=== PATIENT | male | born 1980 | race Caucasian/White ===

== ENCOUNTER 2021-02-02 23:01 | Emergency (ER) | payer OTHER ==
[~2021-02-02 23:01] MED LIST: AUGMENTIN 875-1 EACH PO; HUMALOG 10100 UNITS/ SC; LANTUS INS100 UTS/M1 SQ; LORTAB 5-325 M1 EACH PO; NEURONTIN 100100 MG PO; NORCO 5-325 TA1 EACH PO
[2021-02-02 23:30] LABS: HEMOGLOBIN 15.5 gm/dl (14.0-17.5); RED BLOOD COUNT 4.89 M/UL (4.20-5.50); WHITE BLOOD COUNT 19.3 K/UL (4.5-11.0)
[2021-02-02 23:52] LABS: BUN/CREATININE RATIO 29 (0-10)
[2021-02-03] MEDS ORDERED: PERCOCET 5/325 T1 EA PO (02:02)
[2021-02-03] MEDS ORDERED: BLOOD TEST (02:06)
== END 2021-02-03 02:33 | disposition home or self-care (01) ==
LOC: ER1 23:01
PROVIDERS: Physician Assistant Medical
DX: R10.31 Right lower quadrant pain (principal); E11.9 Type 2 diabetes mellitus without complications; F17.200 Nicotine dependence, unspecified, uncomplicated
CPT/HCPCS: 80053; 81001; 82009; 82550; 82553; 83690; 83874; 84484; 85025; 93005; 99284; Q9967

== ENCOUNTER → 2021-02-16 | Outpatient (CLI) | payer OTHER ==
[~2021-02-16] MED LIST changes: +BENTYL 10MG CAP10 MG PO; +BLOOD TEST; +IBUPROFEN800 MG PO; +PERCOCET 5/325 T1 EA PO
== END ==
LOC: EXRD 07:52
DX: B18.2 Chronic viral hepatitis C (principal)
CPT/HCPCS: 76705

== ENCOUNTER 2021-03-02 20:16 | Emergency (ER) | payer OTHER ==
[~2021-03-02 20:16] MED LIST changes: -BENTYL 10MG CAP10 MG PO; -IBUPROFEN800 MG PO
[2021-03-02 21:41] LABS: HEMOGLOBIN 14.9 gm/dl (14.0-17.5); RED BLOOD COUNT 4.72 M/UL (4.20-5.50); WHITE BLOOD COUNT 18.2 K/UL (4.5-11.0)
[2021-03-02 22:04] LABS: BUN/CREATININE RATIO 28 (0-10)
[2021-03-03] MEDS ORDERED: BENTYL 10MG CAP10 MG PO (01:41)
[2021-03-03] MEDS ORDERED: IBUPROFEN800 MG PO (01:41)
== END 2021-03-03 01:48 | disposition home or self-care (01) ==
LOC: ER1 20:16
PROVIDERS: Physician Assistant
DX: R10.11 Right upper quadrant pain (principal); E11.9 Type 2 diabetes mellitus without complications; Z90.49 Acquired absence of other specified parts of digestive tract
CPT/HCPCS: 80053; 83605; 83690; 85025; 99284; Q9967

== ENCOUNTER → 2021-03-22 | Outpatient (CLI) | payer OTHER ==
[~2021-03-22] MED LIST changes: +BENTYL 10MG CAP10 MG PO; +IBUPROFEN800 MG PO
[2021-03-23 20:09] LABS: HEPATITIS C QUANTITATION HCV Not Detected IU/mL (.)
== END ==
LOC: LAB 12:42
PROVIDERS: Nurse Practitioner
DX: B18.2 Chronic viral hepatitis C (principal)
CPT/HCPCS: 36415; 87522

== ENCOUNTER → 2021-04-28 | Outpatient (CLI) | payer OTHER | LOC: KOH-I 10:45 | DX: S99.911A Unspecified injury of right ankle, initial encounter (principal); R60.0 Localized edema; S92.321A Displaced fracture of second metatarsal bone, right foot, initial encounter for closed fracture; S92.331A Displaced fracture of third metatarsal bone, right foot, initial encounter for closed fracture; W19.XXXA Unspecified fall, initial encounter | CPT/HCPCS: 73590; 73610 ==

== ENCOUNTER → 2021-05-17 | Outpatient (CLI) | payer OTHER | LOC: KOH-I 09:06 | DX: M25.571 Pain in right ankle and joints of right foot (principal); S92.321D Displaced fracture of second metatarsal bone, right foot, subsequent encounter for fracture with routine healing; S92.331D Displaced fracture of third metatarsal bone, right foot, subsequent encounter for fracture with routine healing | CPT/HCPCS: 73610; 73630; 73700 ==

== ENCOUNTER → 2021-05-31 | Outpatient (CLI) | payer OTHER | LOC: KOH-I 12:55 | DX: R06.02 Shortness of breath (principal); R05.1 Acute cough; J98.11 Atelectasis | CPT/HCPCS: 71046 ==

== ENCOUNTER → 2021-06-09 | Outpatient (CLI) | payer OTHER | LOC: KOH-I 14:37 | DX: S92.321D Displaced fracture of second metatarsal bone, right foot, subsequent encounter for fracture with routine healing (principal); S92.331D Displaced fracture of third metatarsal bone, right foot, subsequent encounter for fracture with routine healing | CPT/HCPCS: 73630 ==

== ENCOUNTER → 2021-06-27 | Outpatient (CLI) | payer OTHER | LOC: KOH-I 15:12 | DX: R06.00 Dyspnea, unspecified (principal) | CPT/HCPCS: 71046 ==

== ENCOUNTER 2021-07-20 07:30 | Observation (INO) | payer OTHER ==
[~2021-07-20] VITALS: Ht 172.7 cm; Wt 153.8 kg
[2021-07-20 08:32] LABS: HEMOGLOBIN 15.3 gm/dl (14.0-17.5); RED BLOOD COUNT 4.9 M/UL (4.20-5.50); WHITE BLOOD COUNT 15.7 K/UL (4.5-11.0)
[2021-07-20 09:07] LABS: BUN/CREATININE RATIO 23 (0-10)
[2021-07-20] MEDS ORDERED: GABAPENTIN600 MG PO (12:51)
[2021-07-20] MEDS ORDERED: HUMULIN R500 UNIT/1 INJ ×2 (12:54)
[2021-07-20] MEDS ORDERED: FLOVENT 44 MCG7.9 GM INH (12:55)
[2021-07-20] MEDS ORDERED: PROAIR DIGIHAL90 MCG INH (12:56)
[2021-07-20] MEDS ORDERED: PROTONIX40 MG PO (12:56)
[2021-07-20] MEDS ORDERED: IBU800 MG PO (12:57)
[2021-07-20 13:18] LABS: BUN/CREATININE RATIO 23 (0-10)
[2021-07-21 05:49] LABS: BUN/CREATININE RATIO 30 (0-10)
[2021-07-21 11:42] LABS: RED BLOOD COUNT 4.92 M/UL (4.20-5.50); WHITE BLOOD COUNT 16.8 K/UL (4.5-11.0)
[2021-07-21] MEDS ORDERED: BACLOFEN10 MG PO (15:57)
[2021-07-21 19:43] LABS: BUN/CREATININE RATIO 31 (0-10)
[2021-07-22 03:36] LABS: HEMOGLOBIN 14.4 gm/dl (14.0-17.5); RED BLOOD COUNT 4.58 M/UL (4.20-5.50)
[2021-07-22 03:57] LABS: BUN/CREATININE RATIO 36 (0-10)
[2021-07-22 04:14] LABS: WHITE BLOOD COUNT 23.6 K/UL (4.5-11.0)
== END 2021-07-22 09:58 | disposition home or self-care (01) ==
LOC: ER1 07:30 → CDU 12:17 → CCU 12:17 → ER1 12:17 → CCU 21:34 → CDU 21:47 → CCU 21:47
PROVIDERS: Internal Medicine; Nurse Practitioner; Physician Assistant Medical; ADMIT Emergency Medicine
DX: R07.81 Pleurodynia (principal); M62.82 Rhabdomyolysis; D72.829 Elevated white blood cell count, unspecified; E11.65 Type 2 diabetes mellitus with hyperglycemia; B19.20 Unspecified viral hepatitis C without hepatic coma; R59.9 Enlarged lymph nodes, unspecified; E66.01 Morbid (severe) obesity due to excess calories; Z68.43 Body mass index [BMI] 50.0-59.9, adult; Z86.16 Personal history of COVID-19; Z79.4 Long term (current) use of insulin; Z79.51 Long term (current) use of inhaled steroids; Z79.899 Other long term (current) drug therapy; Z90.49 Acquired absence of other specified parts of digestive tract
CPT/HCPCS: 36415; 71045; 80048; 80053; 81001; 82009; 82550; 82553; 82962; 83874; 84132; 84484; 85025; 86140; 87040; 96374; 96375; 96376; 99284; G0378; J0456; J0696; J1170; J1885; J2270; J2405; J2920; J2930; J7030; Q9967; U0002